=== PATIENT | male | born 1940 | race Asian ===

== ENCOUNTER 2017-11-09 07:08 | Emergency (ER) | payer OTHER ==
[~2017-11-09] VITALS: Ht 172.7 cm; Wt 77.1 kg
[2017-11-09 07:14] VITALS: Ht 172.7 cm; Wt 77.1 kg
[2017-11-09 08:01] LABS: BASOPHIL % 0.3 % (0-2); PLATELET COUNT 156 x10^3mcL (130-400); RED CELL DISTRIBUTION WIDTH 13.8 % (11.5-14.5)
[2017-11-09 08:26] LABS: CALCIUM 8.4 mg/dL (8.5-10.1); CARBON DIOXIDE 23.2 mmol/L (21-32); CHLORIDE SERUM 106 mmol/L (98-107); CREATININE SERUM 1.1 mg/dL (0.7-1.3); GLUCOSE SERUM 118 mg/dL (74-106); POTASSIUM SERUM 3.8 mmol/L (3.5-5.1); SODIUM SERUM 138 mmol/L (136-145)
[2017-11-09 08:30] LABS: ALBUMIN 3.8 g/dL (3.4-5.0); ALKALINE PHOSPHATASE 141 U/L (46-116); ALT/SGPT 31 U/L (16-63); AMYLASE 88 U/L (25-115); AST/SGOT 21 U/L (15-37); BILIRUBIN TOTAL 0.45 mg/dL (0.20-1.00); LIPASE 193 IU/L (73-393); TOTAL PROTEIN, SERUM 7.6 g/dL (6.4-8.2)
[2017-11-09 09:32] LABS: microscopic required? YES; urine erythrocyte 2+ (NEGATIVE)
[2017-11-09 12:37] VITALS: BP 152/77
== END 2017-11-09 12:37 | disposition home or self-care (01) ==
LOC: ED 07:08
PROVIDERS: Emergency Medicine
DX: K59.00 Constipation, unspecified (principal); I10 Essential (primary) hypertension; G20 Parkinson's disease; Z86.73 Personal history of transient ischemic attack (TIA), and cerebral infarction without residual deficits
CPT/HCPCS: J1885; J7030